=== PATIENT | female | born 1970 | race Caucasian/White ===

== ENCOUNTER 2021-10-10 22:45 | Emergency (ER) | payer OTHER ==
[2021-10-11] MEDS ORDERED: IBUPROFEN600 MG PO (02:43)
== END 2021-10-11 03:05 | disposition home or self-care (01) ==
LOC: ER1 22:45
DX: S82.51XA Displaced fracture of medial malleolus of right tibia, initial encounter for closed fracture (principal); S93.121A Dislocation of metatarsophalangeal joint of right great toe, initial encounter; F17.210 Nicotine dependence, cigarettes, uncomplicated; V43.52XA Car driver injured in collision with other type car in traffic accident, initial encounter; W22.11XA Striking against or struck by driver side automobile airbag, initial encounter; Y92.410 Unspecified street and highway as the place of occurrence of the external cause
CPT/HCPCS: 70450; 71045; 72125; 73120; 73562; 73630; 99284